=== PATIENT | female | born 1960 | race Caucasian/White ===

== ENCOUNTER 2017-06-23 06:32 | Day surgery (SDC) | payer BC ==
[2017-06-23] MEDS ORDERED: Bupivacaine 25%/EPINEPHrine/PF 30 ML ONE (07:17)
[2017-06-23] MEDS ORDERED: Triamcinolone Acetonide 40 MG/ML 1 ML MDV ONE (07:18)
[2017-06-23] MEDS ORDERED: ceFAZolin 2 GM in Premix Bag 1 BAG IV ONE (08:00)
[2017-06-23] MEDS ORDERED: Bupivacaine 0.25%/EPINEPHrine 1:200,000 10 ML SDV INJECT ONE (08:00)
[2017-06-23] MEDS ORDERED: Acetaminophen/HYDROcodone 325-5 MG Tab PO PRN (08:00)
[2017-06-23] MEDS ORDERED: Lactated Ringers 1,000 ML IV SCH (08:00)
--- NOTE | 2017-06-23 08:43 | PCM.PREANE ---
Preanesthetic Assessment - Anesthesia/Transfusion/Family Hx Anesthesia History: Prior Anesthesia Without Reaction Family History of Anesthesia Reaction: No Transfusion History: No Prior Transfusion(s) Intubation History: Unknown - Review of Systems General: No Symptoms Pulmonary: No Symptoms Cardiovascular: No Symptoms Gastrointestinal: No Symptoms Neurological: No Symptoms Other: Reports: None - Physical Assessment O2 Sat by Pulse Oximetry: 100 Respiratory Rate: 16 Vital Signs: Last Vital Signs Temp 36.1 C 06/23/17 06:48 Pulse 72 06/23/17 06:48 Resp 16 06/23/17 06:48 BP 124/75 06/23/17 06:48 Pulse Ox 100 06/23/17 06:48 Height: 1.65 m Weight: 64.41 kg ASA Class: 2 Mental Status: Alert & Oriented x3 Airway Class: Mallampati = 2 Dentition: Reports: Normal Dentition Thyro-Mental Finger Breadths: 3 Mouth Opening Finger Breadths: 3 ROM/Head Extension: Full Lungs: Clear to Auscultation, Normal Respiratory Effort Cardiovascular: Regular Rate, Regular Rhythm - Lab Values: Laboratory Last Values Urine HCG, Qual NEGATIVE (NEGATIVE) 06/23/17 06:35 - Allergies Allergies/Adverse Reactions: Allergies Allergy/AdvReac Type Severity Reaction Status Date / Time No Known Allergies Allergy Verified 06/20/17 10:41 - Blood Blood Available: No - Anesthesia Plan Pre-Op Medication Ordered: None - Acknowledgements Anesthesia Type Planned: MAC Pt an Appropriate Candidate for the Planned Anesthesia: Yes Alternatives and Risks of Anesthesia Discussed w Pt/Guardian: Yes Pt/Guardian Understands and Agrees with Anesthesia Plan: Yes PreAnesthesia Questionnaire HEENT History: Reports: Cataract, Glaucoma, Macular Degeneration Cardiovascular History: Reports: Hypertension Gastrointestinal History: Reports: GERD Other Musculoskeletal History: pt. states has had multiple fx, no hardware Psychiatric History: Reports: Anxiety, Depression Endocrine/Metabolic History: Reports: Hypothyroidism - Past Surgical History HEENT Surgical History: Reports: Cataract Surgery GI Surgical History: Reports: Appendectomy, Other (See Below) (abdominoplasty) Female Surgical History: Reports: Other (See Below) (ovarian cystectomy (open )) Musculoskeletal Surgical History: Reports: Other (See Below) (rt. 4th toe surgery) Dermatological Surgical History: Reports: Other (See Below) (breast reduction) - SUBSTANCE USE Smoking Status *Q: Former Smoker Recreational Drug Use History: No - HOME MEDS Home Medications: Home Meds Alendronate Sodium [Fosamax] 70 mg PO ASDIRECTED 06/20/17 [History] DULoxetine HCl [Cymbalta] 30 mg PO DAILY 06/20/17 [History] Furosemide [Lasix] 20 mg PO ASDIRECTED 06/20/17 [History] LORazepam 1 tab PO BEDTIME PRN 06/20/17 [History] Levothyroxine Sodium [Synthroid] 100 mcg PO DAILY 06/20/17 [History] Losartan Potassium 50 mg PO DAILY 06/20/17 [History] medroxyPROGESTERone Acetate [Medroxyprogesterone Acetate] 2.5 mg PO ASDIRECTED 06/20/17 [History] - CURRENT (IN HOUSE) MEDS Current Meds: Current Medications Hydrocodone Bitart/Acetaminophen ([place] 325-5 Mg) 1 tab PO Q4H PRN PRN Reason: Pain Lactated Ringer's (Ringers, Lactated) 1,000 mls @ 125 mls/hr IV ASDIRECTED [facility] Last Admin: 06/23/17 07:00 Dose: 125 mls/hr Discontinued Medications Bupivacaine HCl/Epinephrine Bitart (Marcaine 0.25%/Epinephrine 1:200,000) 10 ml INJECT ONETIME ONE Stop: 06/23/17 08:01 Cefazolin Sodium/Dextrose 2 gm (/ Premix) 50 mls @ 100 mls/hr IV ONETIME ONE Stop: 06/23/17 08:29 Bupivacaine HCl/Epinephrine Bitart (Sensorc Mpf 0.25%-Epi 1:[id number]) Confirm Administered Dose 30 mls @ as directed .ROUTE .STK-MED ONE Stop: 06/23/17 07:18 Triamcinolone Acetonide (Kenalog-40) Confirm Administered Dose 40 mg .ROUTE .STK -MED ONE Stop: 06/23/17 07:19
[2017-06-23] MEDS ORDERED: fentaNYL 100 MCG/2 ML SDV ONE (09:10)
[2017-06-23] MEDS ORDERED: Propofol 200 MG/20 ML SDV ONE (09:10)
[2017-06-23] MEDS ORDERED: Midazolam 1 MG/ML 2 ML SDV ONE (09:10)
[2017-06-23] MEDS ORDERED: Lidocaine 2% 5 ML SDV ONE (09:10)
[2017-06-23] MEDS ORDERED: Ondansetron 4 MG/2 ML SDV ONE (09:26)
[2017-06-23] MEDS ORDERED: fentaNYL 100 MCG/2 ML SDV IVPUSH PRN (09:40)
[2017-06-23 10:11] VITALS: BP 117/79
--- NOTE | 2017-06-23 13:39 | PCM.OPNOTE ---
- General Post-Op/Procedure Note Date of Surgery/Procedure: 06/23/17 Operative Procedure(s): right carpal tunnel release and injection of left cmc thumb joint Pre Op Diagnosis: right carpal tunnel and left cmc thumb arthritis Post-Op Diagnosis: Same Anesthesia Technique: Local, MAC Primary Surgeon: Shi Graham Iron Worker Apprentice: Elise Gautam Complications: None Condition: Good Free Text/Narrative:: Intake & Output 06/22/17 06/23/17 06/23/17 23:59 07:59 15:59 Intake Total 750 Balance 750
--- NOTE | 2017-06-23 19:55 | OR ---
SURGEON: NASRIN KENNEY MD GRILL CHEF:RACH DIAZ DATE OF PROCEDURE: 06/23/2017 PREOPERATIVE DIAGNOSES: Right carpal tunnel syndrome and left carpometacarpal arthritis. POSTOPERATIVE DIAGNOSES: Right carpal tunnel syndrome and left carpometacarpal arthritis. PROCEDURE: Right carpal tunnel release and left carpometacarpal wrist joint injection of the thumb. INDICATIONS: Ms. Mazariegos is a 56-year-old female with right carpal tunnel syndrome and left CMC arthritis. Risks and benefits of injection and carpal tunnel release were discussed with her and she was in agreement to proceed. Risks were including, but not limited to, bleeding, infection, damage to underlying or overlying structures, possible need for future interventions, and possible scarring. PROCEDURE IN DETAIL: After informed consent was obtained and placed on the chart, the patient was brought to the operating theater and laid in the supine position. After adequate local MAC anesthetic was obtained, the area was prepped and draped and a time-out was completed to confirm side and site. Once adequately prepped and draped and a time-out was confirmed, the tourniquet was insufflated to 200 mmHg on the right side after exsanguination of the arm. Attention was then paid to dissection over the transverse carpal ligament, and a #15 blade was used to dissect through skin and subcutaneous tissues. Once the ligament was breached, dissection was carried distally and proximally under direct visualization. Of note, the recurrent motor branch came through the ligament distally. It was preserved and protected throughout the dissection. It was also released from any tethering as well. Once adequately released distally and proximally, the area was copiously irrigated and the skin was closed in an interrupted fashion using horizontal mattress stitches 5-0 nylon. She tolerated this well and then attention was paid to the left CMC joint. Using a 27-gauge needle and 1 mL of Kenalog 40 with 0.25% Marcaine, the left thumb CMC joint was injected with steroid. She tolerated this well. All counts and needles were correct at the end of the case. The right arm was dressed with Xeroform, fluffs, and a Kerlix gauze dressing, and the left was dressed with a Band-Aid. FOLLOWUP INSTRUCTIONS: The patient will see us in 10 to 14 days or sooner if any problems, questions, or concerns. She was given a prescription for pain control. MANE HURT /[id number]
== END 2017-06-23 10:12 | disposition home or self-care (01) ==
LOC: MW.SDS 06:32
PROVIDERS: ATTEND Plastic Surgery
DX: G56.01 Carpal tunnel syndrome, right upper limb (principal); M18.12 Unilateral primary osteoarthritis of first carpometacarpal joint, left hand; I10 Essential (primary) hypertension; K21.9 Gastro-esophageal reflux disease without esophagitis; F32.9 Major depressive disorder, single episode, unspecified; F41.9 Anxiety disorder, unspecified; E03.9 Hypothyroidism, unspecified; Z87.891 Personal history of nicotine dependence; Z98.49 Cataract extraction status, unspecified eye; Z90.49 Acquired absence of other specified parts of digestive tract; Z98.890 Other specified postprocedural states; Z79.899 Other long term (current) drug therapy
CPT/HCPCS: 20605; 64721; 81025; J2250; J2405; J3010; J3301; J7120; 01810; J2704

== ENCOUNTER 2022-01-17 07:36 | Day surgery (SDC) | payer BC ==
[~2022-01-17 07:36] MED LIST: Albuterol 0.083% 2.5 MG/3 ML Neb Soln NEB PRN; Bupivacaine 0.5% 10 ML SDV ONE; Dexamethasone 4 MG/ML 5 ML MDV ONE; Glycopyrrolate 0.2 MG/ML SDV ONE; HYDROmorphone 1 MG/ML Syringe IVPUSH PRN; Ketorolac 30 MG/ML SDV ONE; Lactated Ringers 1,000 ML IV SCH; Metoclopramide 10 MG/2 ML SDV IVPUSH PRN; Midazolam 1 MG/ML 2 ML SDV ONE; Morphine 4 MG/ML VIAL IVPUSH PRN; Naloxone 0.4 MG/ML SDV IVPUSH PRN; Octyl 2-Cyanoacrylate 1 Tube ONE; Ondansetron 4 MG/2 ML SDV IVPUSH PRN; Ondansetron 4 MG/2 ML SDV ONE; Propofol 200 MG/20 ML SDV ONE; Scopolamine 1.5 MG Transdermal Patch ONE; fentaNYL 100 MCG/2 ML SDV IVPUSH PRN; fentaNYL 100 MCG/2 ML SDV ONE
[2022-01-17] MEDS ORDERED: Propofol 200 MG/20 ML SDV ONE (09:28)
[2022-01-17] MEDS ORDERED: Ketamine 500 mg/10 ML MDV ONE (10:14)
[2022-01-17] MEDS ORDERED: Acetaminophen/HYDROcodone 325-5 MG Tab PO PRN (11:06)
[2022-01-17] MEDS ORDERED: Lactated Ringers 1,000 ML IV SCH (11:15)
[2022-01-17 11:53] VITALS: BP 100/66; PULSE 77
== END 2022-01-17 11:56 | disposition home or self-care (01) ==
LOC: MW.SDS 07:36
PROVIDERS: ATTEND Surgery
DX: D05.12 Intraductal carcinoma in situ of left breast (principal); N64.1 Fat necrosis of breast; F41.9 Anxiety disorder, unspecified; I10 Essential (primary) hypertension; K21.9 Gastro-esophageal reflux disease without esophagitis; F32.A Depression, unspecified; E03.9 Hypothyroidism, unspecified; Z98.890 Other specified postprocedural states; Z79.890 Hormone replacement therapy; Z79.899 Other long term (current) drug therapy; Z80.8 Family history of malignant neoplasm of other organs or systems; Z87.891 Personal history of nicotine dependence
CPT/HCPCS: 19120; A9270; J0131; J1100; J1885; J2250; J2405; J2704; J3490; J7120; 00400; J3010

== ENCOUNTER 2023-05-29 10:13 | Day surgery (SDC) | payer BC ==
[~2023-05-29 10:13] MED LIST changes: -Albuterol 0.083% 2.5 MG/3 ML Neb Soln NEB PRN; -Bupivacaine 0.5% 10 ML SDV ONE; -Dexamethasone 4 MG/ML 5 ML MDV ONE; -Glycopyrrolate 0.2 MG/ML SDV ONE; -HYDROmorphone 1 MG/ML Syringe IVPUSH PRN; -Ketorolac 30 MG/ML SDV ONE; +Lidocaine 2% 5 ML SDV ONE; -Metoclopramide 10 MG/2 ML SDV IVPUSH PRN; -Midazolam 1 MG/ML 2 ML SDV ONE; -Morphine 4 MG/ML VIAL IVPUSH PRN; -Naloxone 0.4 MG/ML SDV IVPUSH PRN; -Octyl 2-Cyanoacrylate 1 Tube ONE; -Ondansetron 4 MG/2 ML SDV IVPUSH PRN; -Ondansetron 4 MG/2 ML SDV ONE; -Propofol 200 MG/20 ML SDV ONE; -Scopolamine 1.5 MG Transdermal Patch ONE; -fentaNYL 100 MCG/2 ML SDV IVPUSH PRN; -fentaNYL 100 MCG/2 ML SDV ONE; +propofoL 50 ML ONE
[2023-05-29] MEDS ORDERED: Propofol 200 MG/20 ML SDV ONE ×2 (13:03→13:25)
[2023-05-29] MEDS ORDERED: Lactated Ringers 1,000 ML IV SCH (13:45)
== END 2023-05-29 14:38 | disposition home or self-care (01) ==
LOC: MW.SDS 10:13
PROVIDERS: ATTEND Surgery
DX: R13.10 Dysphagia, unspecified (principal); I13.0 Hypertensive heart and chronic kidney disease with heart failure and stage 1 through stage 4 chronic kidney disease, or unspecified chronic kidney disease; I50.9 Heart failure, unspecified; N18.9 Chronic kidney disease, unspecified; F32.A Depression, unspecified; K21.9 Gastro-esophageal reflux disease without esophagitis; F41.9 Anxiety disorder, unspecified; E03.9 Hypothyroidism, unspecified; B07.8 Other viral warts; Z88.8 Allergy status to other drugs, medicaments and biological substances; Z88.5 Allergy status to narcotic agent; Z98.890 Other specified postprocedural states; Z79.890 Hormone replacement therapy; Z87.19 Personal history of other diseases of the digestive system; Z79.899 Other long term (current) drug therapy
CPT/HCPCS: 43239; 45330; J2704; J7120; 00813; J3490